=== PATIENT | male | born 1995 | race African-American/Black ===

== ENCOUNTER 2021-05-26 10:54 | Emergency (ER) | payer MEDICAID ==
[~2021-05-26] VITALS: Ht 182.9 cm; Wt 81.8 kg
[2021-05-26] MEDS ORDERED: ACETAMINOPHEN 500 MG TABLET PO ONE (12:45)
[2021-05-26 12:56] LABS: COVID AG,FIA SOURCE NASOPHARYNGEAL
[2021-05-26 13:42] VITALS: BP 121/63
== END 2021-05-26 13:37 | disposition home or self-care (01) ==
LOC: EMS 11:01
DX: R06.00 Dyspnea, unspecified (principal); R09.81 Nasal congestion; F17.210 Nicotine dependence, cigarettes, uncomplicated; F12.90 Cannabis use, unspecified, uncomplicated; Z20.822 Contact with and (suspected) exposure to COVID-19
CPT/HCPCS: 87426; 99283; U0003

== ENCOUNTER 2024-05-20 22:48 | Emergency (ER) | payer MEDICAID, OTHER ==
[~2024-05-20] VITALS: Ht 184.8 cm; Wt 90.9 kg
[2024-05-20 23:13] VITALS: BP 101/45; PULSE 96; RESP 20; TEMP 98.1
[2024-05-21] MEDS ORDERED: LIDOCAINE/PF 1% 5 ML VIAL SQ ONE
[2024-05-21] MEDS ORDERED: PERTUSS(ACELL),DIPH,TET/PF 0.5 ML SYRINGE [ADULT] IM. ONE
[2024-05-21] MEDS ORDERED: LIDOCAINE 1% 10 ML VIAL SQ ONE
== END 2024-05-21 02:00 | disposition left against medical advice (07) ==
LOC: EMS 22:48
DX: S01.511A Laceration without foreign body of lip, initial encounter (principal); F17.210 Nicotine dependence, cigarettes, uncomplicated; F12.90 Cannabis use, unspecified, uncomplicated; X58.XXXA Exposure to other specified factors, initial encounter; Y93.89 Activity, other specified; Y92.89 Other specified places as the place of occurrence of the external cause; Y99.8 Other external cause status
CPT/HCPCS: 99281; Z7502

== ENCOUNTER 2024-05-21 08:24 | Emergency (ER) | payer MEDICAID, OTHER ==
[~2024-05-21] VITALS: Ht 185.4 cm; Wt 90.9 kg
[2024-05-21 09:35] VITALS: BP 136/80; PULSE 84; RESP 14; TEMP 98
[2024-05-21] MEDS: PERTUSS(ACELL),DIPH,TET/PF 0.5 ML SYRINGE [ADULT] IM. ONE (13:11)
== END 2024-05-21 14:24 | disposition home or self-care (01) ==
LOC: EMS 08:24
DX: S01.511A Laceration without foreign body of lip, initial encounter (principal); F17.210 Nicotine dependence, cigarettes, uncomplicated; F12.90 Cannabis use, unspecified, uncomplicated; W26.8XXA Contact with other sharp object(s), not elsewhere classified, initial encounter; Y93.63 Activity, rugby; Y92.89 Other specified places as the place of occurrence of the external cause; Y99.8 Other external cause status
CPT/HCPCS: 90471; 90715; 99283

== ENCOUNTER 2024-05-25 14:05 | Emergency (ER) | payer MEDICAID, OTHER ==
[~2024-05-25] VITALS: Ht 188 cm; Wt 90.9 kg
[2024-05-25 14:10] VITALS: TEMP 98.7
[2024-05-25 16:00] VITALS: BP 121/69; PULSE 57; RESP 16; O2SAT 100
== END 2024-05-25 16:24 | disposition home or self-care (01) ==
LOC: EMS 14:05
DX: S01.511D Laceration without foreign body of lip, subsequent encounter (principal); F17.210 Nicotine dependence, cigarettes, uncomplicated; F12.90 Cannabis use, unspecified, uncomplicated; Y08.89XD Assault by other specified means, subsequent encounter
CPT/HCPCS: 99282; 99407; Z7502

== ENCOUNTER 2024-06-05 19:17 | Emergency (ER) | payer OTHER | END 2024-06-05 22:33 | disposition left against medical advice (07) | LOC: EMS 19:17 | DX: Z53.21 Procedure and treatment not carried out due to patient leaving prior to being seen by health care provider (principal) ==

== ENCOUNTER 2024-12-20 19:40 | Emergency (ER) | payer OTHER ==
[~2024-12-20] VITALS: Ht 185.4 cm; Wt 90.9 kg
[2024-12-20 19:54] VITALS: BP 136/74; PULSE 76; RESP 16; TEMP 98.6; O2SAT 98
== END 2024-12-20 21:17 | disposition home or self-care (01) ==
LOC: EMS 19:40
DX: S31.130A Puncture wound of abdominal wall without foreign body, right upper quadrant without penetration into peritoneal cavity, initial encounter (principal); F12.90 Cannabis use, unspecified, uncomplicated; F17.210 Nicotine dependence, cigarettes, uncomplicated; X58.XXXA Exposure to other specified factors, initial encounter; Y93.89 Activity, other specified; Y92.89 Other specified places as the place of occurrence of the external cause; Y99.8 Other external cause status
CPT/HCPCS: 74018; 99283; 99406